=== PATIENT | female | born 1955 | race Caucasian/White ===

== ENCOUNTER 2016-12-09 22:44 | Observation (INO) | payer OTHER ==
[~2016-12-09] VITALS: Ht 170.2 cm; Wt 87.4 kg
[2016-12-09] MEDS ORDERED: TRAZODONE HCL50 MG PO (22:57)
[2016-12-09] MEDS ORDERED: CELEXA40 MG PO (22:57)
[2016-12-09] MEDS ORDERED: PREMARIN0.625 MG PO (22:57)
[2016-12-09] MEDS ORDERED: NUVIGIL150 MG PO (22:57)
[2016-12-09] MEDS ORDERED: PROBIOTIC1 EAC1 PO (22:58)
[2016-12-09] MEDS ORDERED: LO-DOSE ASPIRIN81 M2 PO (22:58)
[2016-12-09] MEDS ORDERED: CLARITIN-D 21 TABLET PO (22:58)
[2016-12-09] MEDS ORDERED: FOLIC ACID0.8 MG PO (22:58)
[2016-12-09] MEDS ORDERED: CYANOCOBALAM1000 MCG PO (22:59)
[2016-12-09] MEDS ORDERED: CENTRUM SILVER1 EAC4 PO (23:00)
[2016-12-09] MEDS ORDERED: CINNAMON500 MG PO (23:00)
[2016-12-09 23:46] LABS: HEMATOCRIT 37.5 % (36.0-46.0); MCH 28.7 PG (29.0-34.0); MCHC 33.3 G/DL (30.0-36.0); MCV 86.2 FL (83-99); MEAN PLAT.VOLUME 9.4 uM^3 (9.5-12.4); PLATELET COUNT 417 K/uL (156-360); RBC DIS.WIDTH-CV 13.3 % (11.8-14.6); RBC DIS.WIDTH-SD 41.2 % (39-53); RED BLOOD COUNT 4.35 M/uL (3.80-5.20); WHITE BLOOD COUNT 7.5 K/uL (4.1-10.2)
[2016-12-09 23:57] LABS: D-DIMER ELISA 0.19 mg/L FEU (< 0.57)
[2016-12-09 23:58] LABS: CHLORIDE 109 mEq/L (99-109); POTASSIUM 3.9 mEq/L (3.7-5.4); SODIUM 141 mEq/L (136-147)
[2016-12-10] LABS: GLUCOSE 103 mg/dL (70-99)
[2016-12-10 00:01] LABS: ANION GAP 10 MEQ/L (2-14)
[2016-12-10 00:04] LABS: GFR ESTIMATE (CALCULATED) 54 mL/min/
[2016-12-10 00:05] LABS: UREA NITROGEN (BUN) 14 mg/dL (9-23)
[2016-12-10 00:06] LABS: TROP-I INTERPRETATION NEGATIVE; TROPONIN-I < 0.01 ng/mL (0.0-0.30)
[2016-12-10] MEDS ORDERED: PROLENSA1.6 ML LEFT EYE (00:39)
[2016-12-10] MEDS ORDERED: PREDNISOLONE AC15 ML LEFT EYE (00:39)
[2016-12-10] MEDS ORDERED: BESIVANCE5 ML LEFT EYE (00:39)
[2016-12-10 03:10] VITALS: BP 109/70
[2016-12-10 06:41] LABS: TROP-I INTERPRETATION NEGATIVE; TROPONIN-I < 0.01 ng/mL (0.0-0.30)
[2016-12-10 08:45] VITALS: BP 131/77
[2016-12-10 12:18] LABS: TROP-I INTERPRETATION NEGATIVE; TROPONIN-I 0.01 ng/mL (0.0-0.30)
[2016-12-10 12:27] VITALS: BP 115/71
[2016-12-10] MEDS ORDERED: NITROSTAT0.4 MG SL (14:12)
== END 2016-12-10 14:52 | disposition home or self-care (01) ==
LOC: EME → EDBD 22:44 → EME 22:44 → EDOF 12-10 02:04 → 5WEST 12-10 02:52
PROVIDERS: Emergency Medicine; Physician Assistant
DX: R07.89 Other chest pain (principal); G35 Multiple sclerosis; G47.30 Sleep apnea, unspecified
CPT/HCPCS: 71010; 80048; 84484; 85027; 85379; 86308; 93005; 99281; 99285; G0378; J1650